=== PATIENT | male | born 1970 | race Caucasian/White ===

== ENCOUNTER 2016-09-21 20:18 | Emergency (ER) | payer BC, OTHER ==
[~2016-09-21] VITALS: Ht 188 cm; Wt 122.5 kg
[2016-09-21] MEDS ORDERED: losartan (21:34)
[2016-09-21] MEDS ORDERED: metoprolol (21:34)
[2016-09-21] MEDS ORDERED: simvastatin (21:34)
[2016-09-21] MEDS ORDERED: TETANUS,DIPTH,PERTUSS P/F (BOOSTRIX) 0.5 ML VIAL IM STA (21:37)
--- NOTE | 2016-09-21 21:41 | ED General ---
General Chief Complaint: Laceration Stated Complaint: RT HAND FINGER LAC Nursing Triage Note: pt reports lac to r index finger this am. pt reprots he used a powder to stop the bleeding but now thinks it should be cleaned out becuase he doesnt want it to get infected. Nursing Sepsis Screen: No Definite Risk Source of Information: Patient, Spouse Exam Limitations: No Limitations History of Present Illness Time Seen by Provider: 21:25 Initial Comments 45-year-old male patient presents to the emergency department with complaints of the laceration to the right index finger. Reports incident occurred this a.m. States he used a blood stop powder to stop the bleeding. Patient is now concerned that it may get infected and would like to have the wound cleaned out. Location Injury Occurred: home Timing/Duration: 12 Hours Modifying Factors: worse with Other (increased pain with palpation) Allergies and Home Medications Allergies Coded Allergies: No Known Drug Allergies (Unverified , 09/21/16) Home Medications (Reported) (Reported) (Reported) Cephalexin 500 Mg Capsule #21 500 MG PO TID Prescribed by: LYUDMILA RAUSCH on 09/21/16 8675 Constitutional: No chills, No fever, No malaise Musculoskeletal: No joint pain, No joint swelling Skin: see HPI other (laceration right index finger) Psychiatric/Neurological: Denies Numbness, Denies Paresthesia, Denies Tingling , Denies Weakness All Other Systems Reviewed Negative Unless Noted: Yes (Negative excepted noted.) Past Adwpzky-Ahndjy-Qsgmhb Hx Patient Social History Alcohol Use: Occasionally Uses Recreational Drug Use: No Smoking Status: Former Smoker Type Used: Cigarettes Recent Foreign Travel: No Contact w/Someone Who Travel: No Recent Infectious Disease Expo: No Recent Hopitalizations: No Physical Abuse Screen: No Sexual Abuse: No Immunizations Up To Date Tetanus Booster (TDap): More than 5yrs Date of Influenza Vaccine: Jun 15, 2016 Seasonal Allergies Seasonal Allergies: No Surgeries HX Surgeries: No Respiratory Hx Respiratory Disorders: No Cardiovascular Hx Cardiac Disorders: Yes Cardiac Disorders: High Cholesterol, Hypertension Neurological Hx Neurological Disorders: No Reproductive System Hx Reproductive Disorders: No Genitourinary Hx Genitourinary Disorders: No Gastrointestinal Hx Gastrointestinal Disorders: No Musculoskeletal Hx Musculoskeletal Disorders: No Endocrine Hx Endocrine Disorders: No HEENT HX ENT Disorders: No Cancer Hx Cancer: No Psychosocial Hx Psychiatric Problems: No Integumentary HX Skin/Integumentary Disorder: No Blood Transfusions Hx Blood Disorders: No Adverse Reaction to a Blood Tr: No Reviewed Nursing Assessment Reviewed/Agree w Nursing PMH: Yes Family Medical History Significant Family History: No Pertinent Family Hx Physical Exam Vital Signs Capillary Refill : Less Than 3 Seconds General Appearance: No Apparent Distress WD/WN Cardiovascular: Normal Peripheral Pulses Extremity: Normal Capillary Refill Normal Range of Motion Other (1.5 cm irregular laceration with "blood stop powder" noted over the wound. No active bleeding noted. No evidence of cellulitis. Soft tissue tenderness noted.) Neurologic/Psychiatric: Alert Oriented x3 No Motor/Sensory Deficits Normal Mood/Affect Skin: Normal Color Warm/Dry Other (1.5 cm irregular laceration with "blood stop powder" noted over the wound. No active bleeding noted. No evidence of cellulitis. Soft tissue tenderness noted.) Progress/Results/Core Measures Results/Orders My Orders Vital Signs/I&O Blood Pressure Mean: 120 Departure Communication Progress Notes Patient seen and evaluated. Wound scrubbed with chlorhexidine and sterile saline. Blood stop powder was removed at the time of wound care. Wound was then covered with a bandage and finger splint. Proceed with discharge to home. Impression Impression: Primary Impression: Laceration of finger Qualified Code: S61.219A - Laceration without foreign body of unspecified finger without damage to nail, initial encounter Disposition: 01 HOME, SELF-CARE Condition: Improved Departure-Patient Inst. Decision time for Depature: 22:45 Referrals: DONNA CHERY DO (PCP/Family) Primary Care Physician Patient Instructions: Tetanus Toxoid (Adsorbed), SKIN AVULSION Add. Discharge Instructions: All discharge instructions reviewed with patient and/or family. Voiced understanding. Medications as instructed. Tylenol extra strength over-the- counter as directed for pain. Ibuprofen 800 mg by mouth every 8 hours as needed for pain. Elevate the right hand on pillows. Ice pack as needed for pain. Tomorrow morning you may begin showering with antibacterial soap. Follow -up with your family practitioner if needed. Return to the emergency department for worsened pain, redness, drainage, fever, or any other concerns. Scripts Cephalexin 500 Mg [id number] Mg PO TID #21 CAP Ref 0 Prov:LYUDMILA RAUSCH 09/21/16 LYUDMILA RAUSCH Sep 21, 2016 21:41
[2016-09-21] MEDS ORDERED: CEPH500C PO (22:47)
[2016-09-21] MEDS ORDERED: RX-CEPHALEXIN (KEFLEX) 250 MG CAP PPK#4 PO STA (22:47)
[2016-09-21 22:56] VITALS: BP 148/98
== END 2016-09-21 22:56 | disposition home or self-care (01) ==
LOC: EDUNIT# 20:18 → ER 20:21
DX: S61.210A Laceration without foreign body of right index finger without damage to nail, initial encounter (principal); Z23 Encounter for immunization; I10 Essential (primary) hypertension; W45.8XXA Other foreign body or object entering through skin, initial encounter; Y99.8 Other external cause status
CPT/HCPCS: 90471; 90715; 99283